=== PATIENT | male | born 1950 | race Caucasian/White ===

== ENCOUNTER 2022-08-04 13:12 | Inpatient (IN) ==
[2022-08-04] MEDS ORDERED: Ondansetron 4 MG/2 ML VIAL IVP ONE (13:28)
[2022-08-04] MEDS ORDERED: Morphine Sulfate 2 MG/ML SYRINGE IVP ONE (13:28)
[2022-08-04] MEDS ORDERED: *HR* HYDROmorphone (PF) 1 MG/ML SYRINGE IVP ONE ×2 (14:33→20:18)
[2022-08-04] MEDS ORDERED: Naloxone 0.4 MG/ML INJ IVP PRN (15:01)
[2022-08-04 15:24] LABS: Basophils % 0.4 %; Eosinophils # 0.1 K/mcL (0.0-0.6); Eosinophils % 0.8 %; Hematocrit 40.7 % (37.5-50.1); Hemoglobin 13.8 g/dL (12.9-16.9); Immature Granulocytes % 0.4 % (0-4); Lymphocytes # 0.8 K/mcL (0.6-4.6); Lymphocytes % 7.3 %; Mean Corpuscular HGB Conc 33.9 g/dL (31.6-35.5); Mean Corpuscular Hemoglobin 29.4 pg (28.0-33.3); Mean Corpuscular Volume 86.8 fL (83.0-100.0); Mean Platelet Volume 8.7 fL (9.4-12.4); Monocytes # 0.5 K/mcL (0.0-1.3); Monocytes % 4.5 %; Neutrophils # 9.2 K/mcL (1.6-8.9); Platelet Count 282 K/mcL (140-400); Red Blood Count 4.69 M/mcL (4.19-5.50); Red Cell Distribution Width 13.4 % (11.5-14.5); Segmented Neutrophils % 86.6 %; White Blood Count 10.7 K/mcL (4.3-11.1)
[2022-08-04 15:26] LABS: BUN/Creatinine Ratio 29 (6-26); Blood Urea Nitrogen 16 mg/dL (8-23); Calcium 9.8 mg/dL (8.6-10.3); Carbon Dioxide 26 mEq/L (23-29); Chloride 104 mEq/L (98-107); Glucose 112 mg/dL (70-105); Osmolality,Calculated 284 (280-300); Potassium 3.9 mEq/L (3.5-5.1); Sodium 136 mEq/L (136-145)
[2022-08-04 15:30] LABS: Prothrombin Time 11.6 Seconds (9.4-12.1)
[2022-08-04 15:33] LABS: Activated Partial Thrombo Time 29.6 Seconds (26.0-36.0)
[2022-08-04] MEDS ORDERED: *HR* OxyCODONE/APAP 7.5/325 TABLET PO PRN (16:42)
[2022-08-04] MEDS: *HR* Heparin 5,000 UNIT/ML VIAL SQ SCH (18:32)
[2022-08-04] MEDS ORDERED: D5% in Water 1,000 ML IVC PRN (20:21)
[2022-08-04] MEDS ORDERED: *HR* Dextrose 50 % in Water (Syg) 50 ML SYRINGE IVP PRN (20:21)
[2022-08-04] MEDS ORDERED: Dextrose Gel 15 GM/37.5 ML TUBE PO PRN ×2 (20:21)
[2022-08-04] MEDS: Aspirin Enteric Coated 81 MG Tablet PO SCH ×2 (21:09→21:10)
[2022-08-05] MEDS: *HR* OxyCODONE Immed Rel 5 MG TABLET PO PRN ×3 (02:13→19:03)
[2022-08-05 04:44] LABS: Basophils % 0.3 %; Eosinophils # 0.6 K/mcL (0.0-0.6); Eosinophils % 6.5 %; Hematocrit 40.5 % (37.5-50.1); Hemoglobin 13.6 g/dL (12.9-16.9); Immature Granulocytes % 0.1 % (0-4); Lymphocytes # 1.6 K/mcL (0.6-4.6); Lymphocytes % 18.3 %; Mean Corpuscular HGB Conc 33.6 g/dL (31.6-35.5); Mean Corpuscular Hemoglobin 29.6 pg (28.0-33.3); Mean Corpuscular Volume 88.2 fL (83.0-100.0); Mean Platelet Volume 8.9 fL (9.4-12.4); Monocytes # 0.7 K/mcL (0.0-1.3); Monocytes % 8.3 %; Neutrophils # 5.9 K/mcL (1.6-8.9); Platelet Count 302 K/mcL (140-400); Red Blood Count 4.59 M/mcL (4.19-5.50); Red Cell Distribution Width 13.5 % (11.5-14.5); Segmented Neutrophils % 66.5 %; White Blood Count 8.8 K/mcL (4.3-11.1)
[2022-08-05 05:01] LABS: BUN/Creatinine Ratio 24 (6-26); Blood Urea Nitrogen 15 mg/dL (8-23); Calcium 9.6 mg/dL (8.6-10.3); Carbon Dioxide 28 mEq/L (23-29); Chloride 100 mEq/L (98-107); Glucose 109 mg/dL (70-105); Osmolality,Calculated 283 (280-300); Potassium 3.7 mEq/L (3.5-5.1); Sodium 136 mEq/L (136-145)
[2022-08-05] MEDS ORDERED: *HR* HYDROmorphone (PF) 1 MG/ML SYRINGE IVP ONE (05:04)
[2022-08-05] MEDS: Levothyroxine 25 MCG TABLET PO SCH (05:09)
[2022-08-05] MEDS: *HR* Heparin 5,000 UNIT/ML VIAL SQ SCH ×2 (05:09→18:59)
[2022-08-05] MEDS: Metoprolol XL (24 HR) Succ 25 MG TAB.ER.24H PO SCH (07:33)
[2022-08-05] MEDS ORDERED: *HR* Rocuronium Bromide 50 MG/5 ML VIAL ONE (07:35)
[2022-08-05] MEDS ORDERED: Lidocaine HCL 4 ML Topical Solution (Laryng-O-Jet Kit Sterile Pak) TP ONE (07:35)
[2022-08-05] MEDS ORDERED: Lidocaine -MPF 2% 5 ML VIAL ONE (07:35)
[2022-08-05] MEDS ORDERED: Ondansetron 4 MG/2 ML VIAL ONE (07:35)
[2022-08-05] MEDS ORDERED: *HR* FentaNYL (PF) 100 MCG/2 ML VIAL ONE (07:36)
[2022-08-05] MEDS ORDERED: *HR* Propofol 200 MG/20 ML VIAL IVP ONE (07:37)
[2022-08-05] MEDS ORDERED: CeFAZolin Syr 2,000MG/20 ML 2,000 MG/20 ML SYRINGE IVPB ONE (07:42)
[2022-08-05] MEDS: Ringers Solution, Lactated 1,000 ML IVC SCH (07:45)
[2022-08-05] MEDS ORDERED: *HR* FentaNYL (PF) 100 MCG/2 ML VIAL IVP PRN (07:58)
[2022-08-05] MEDS ORDERED: *HR* Vasopressin 20 UNIT/ML VIAL ONE (08:17)
[2022-08-05] MEDS ORDERED: Albumin Human 5% 12.5 GM/250 ML IV.SOLN ONE (08:25)
[2022-08-05] MEDS ORDERED: *HR* Phenylephrine 10 MG/ML VIAL ONE (08:38)
[2022-08-05] MEDS ORDERED: Sugammadex Sodium 200 MG/2 ML VIAL IV ONE (08:51)
[2022-08-05] MEDS ORDERED: Acetaminophen IV 1,000 MG/100 ML BAG IVPB ONE (08:52)
[2022-08-05] MEDS ORDERED: *HR* Metoprolol 5 MG/5 ML VIAL IVP PRN (10:15)
[2022-08-05] MEDS ORDERED: Nitroglycerin 0.4 MG TAB.SUBL SL PRN (15:50)
[2022-08-05] MEDS: CeFAZolin 2 GM/120 ML BAG IVPB SCH (16:24)
[2022-08-05] MEDS: *HR* OxyCODONE/APAP 5/325 TABLET PO PRN (21:29)
[2022-08-05] MEDS ORDERED: traZODone 50 MG TABLET PO ONE (21:50)
[2022-08-06] MEDS: CeFAZolin 2 GM/120 ML BAG IVPB SCH (00:18)
[2022-08-06] MEDS: *HR* OxyCODONE Immed Rel 5 MG TABLET PO PRN ×4 (00:18→21:29)
[2022-08-06] MEDS: *HR* OxyCODONE/APAP 5/325 TABLET PO PRN ×3 (03:57→23:05)
[2022-08-06 04:29] LABS: Hematocrit 29.4 % (37.5-50.1)
[2022-08-06 04:32] LABS: Hemoglobin 9.9 g/dL (12.9-16.9)
[2022-08-06] MEDS: Levothyroxine 25 MCG TABLET PO SCH (06:14)
[2022-08-06] MEDS: *HR* Heparin 5,000 UNIT/ML VIAL SQ SCH ×3 (06:15→23:05)
[2022-08-06] MEDS: Metoprolol XL (24 HR) Succ 25 MG TAB.ER.24H PO SCH (08:11)
[2022-08-06] MEDS: Ringers Solution, Lactated 1,000 ML IVC SCH (15:41)
[2022-08-06] MEDS: Aspirin Enteric Coated 81 MG Tablet PO SCH (21:29)
[2022-08-07] MEDS: *HR* OxyCODONE/APAP 5/325 TABLET PO PRN (03:48)
[2022-08-07] MEDS: *HR* OxyCODONE Immed Rel 5 MG TABLET PO PRN ×3 (05:52→19:57)
[2022-08-07] MEDS: Levothyroxine 25 MCG TABLET PO SCH (05:52)
[2022-08-07] MEDS: *HR* Heparin 5,000 UNIT/ML VIAL SQ SCH ×2 (08:18→16:32)
[2022-08-07] MEDS: Metoprolol XL (24 HR) Succ 25 MG TAB.ER.24H PO SCH (08:18)
[2022-08-07 14:16] LABS: Basophils % 0.3 %; Eosinophils # 0.4 K/mcL (0.0-0.6); Eosinophils % 5.6 %; Hematocrit 27.2 % (37.5-50.1); Immature Granulocytes % 0.5 % (0-4); Lymphocytes % 16.2 %; Mean Corpuscular HGB Conc 33.1 g/dL (31.6-35.5); Mean Corpuscular Hemoglobin 29.9 pg (28.0-33.3); Mean Corpuscular Volume 90.4 fL (83.0-100.0); Mean Platelet Volume 8.9 fL (9.4-12.4); Monocytes # 0.5 K/mcL (0.0-1.3); Monocytes % 8.6 %; Neutrophils # 4.3 K/mcL (1.6-8.9); Platelet Count 269 K/mcL (140-400); Red Blood Count 3.01 M/mcL (4.19-5.50); Red Cell Distribution Width 13.7 % (11.5-14.5); Segmented Neutrophils % 68.8 %; White Blood Count 6.3 K/mcL (4.3-11.1)
[2022-08-07 14:37] LABS: BUN/Creatinine Ratio 18 (6-26); Blood Urea Nitrogen 11 mg/dL (8-23); Calcium 8.8 mg/dL (8.6-10.3); Carbon Dioxide 28 mEq/L (23-29); Chloride 99 mEq/L (98-107); Glucose 108 mg/dL (70-105); Osmolality,Calculated 278 (280-300); Potassium 3.6 mEq/L (3.5-5.1); Sodium 134 mEq/L (136-145)
[2022-08-08] MEDS: *HR* Heparin 5,000 UNIT/ML VIAL SQ SCH ×3 (02:58→15:38)
[2022-08-08] MEDS: Levothyroxine 25 MCG TABLET PO SCH (06:14)
[2022-08-08 07:01] LABS: Basophils % 0.3 %; Eosinophils # 0.4 K/mcL (0.0-0.6); Eosinophils % 6.8 %; Hematocrit 26.1 % (37.5-50.1); Hemoglobin 8.7 g/dL (12.9-16.9); Immature Granulocytes % 0.5 % (0-4); Lymphocytes # 1.1 K/mcL (0.6-4.6); Lymphocytes % 19.2 %; Mean Corpuscular HGB Conc 33.3 g/dL (31.6-35.5); Mean Corpuscular Hemoglobin 29.8 pg (28.0-33.3); Mean Corpuscular Volume 89.4 fL (83.0-100.0); Mean Platelet Volume 9.3 fL (9.4-12.4); Monocytes # 0.5 K/mcL (0.0-1.3); Monocytes % 8.7 %; Neutrophils # 3.7 K/mcL (1.6-8.9); Platelet Count 271 K/mcL (140-400); Red Blood Count 2.92 M/mcL (4.19-5.50); Red Cell Distribution Width 13.8 % (11.5-14.5); Segmented Neutrophils % 64.5 %; White Blood Count 5.7 K/mcL (4.3-11.1)
[2022-08-08] MEDS: Metoprolol XL (24 HR) Succ 25 MG TAB.ER.24H PO SCH (08:01)
[2022-08-08] MEDS: *HR* OxyCODONE/APAP 5/325 TABLET PO PRN ×2 (16:41→20:58)
[2022-08-08] MEDS: Aspirin Enteric Coated 81 MG Tablet PO SCH (20:58)
[2022-08-09] MEDS: Levothyroxine 25 MCG TABLET PO SCH (04:39)
[2022-08-09] MEDS: *HR* OxyCODONE/APAP 5/325 TABLET PO PRN ×2 (04:39→15:20)
[2022-08-09] MEDS: *HR* Heparin 5,000 UNIT/ML VIAL SQ SCH ×3 (05:48→16:17)
[2022-08-09 06:57] LABS: Hemoglobin 8.8 g/dL (12.9-16.9); Mean Corpuscular HGB Conc 33.8 g/dL (31.6-35.5); Mean Corpuscular Hemoglobin 29.6 pg (28.0-33.3); Mean Corpuscular Volume 87.5 fL (83.0-100.0); Mean Platelet Volume 8.8 fL (9.4-12.4); Platelet Count 310 K/mcL (140-400); Red Blood Count 2.97 M/mcL (4.19-5.50); Red Cell Distribution Width 13.8 % (11.5-14.5); White Blood Count 5.2 K/mcL (4.3-11.1)
[2022-08-09 07:19] LABS: BUN/Creatinine Ratio 27 (6-26); Blood Urea Nitrogen 16 mg/dL (8-23); Calcium 8.6 mg/dL (8.6-10.3); Carbon Dioxide 29 mEq/L (23-29); Chloride 100 mEq/L (98-107); Glucose 103 mg/dL (70-105); Osmolality,Calculated 281 (280-300); Potassium 3.7 mEq/L (3.5-5.1); Sodium 135 mEq/L (136-145)
[2022-08-09] MEDS: Metoprolol XL (24 HR) Succ 25 MG TAB.ER.24H PO SCH (08:28)
[2022-08-10] MEDS: *HR* OxyCODONE/APAP 5/325 TABLET PO PRN ×2 (00:12→06:14)
[2022-08-10] MEDS: *HR* Heparin 5,000 UNIT/ML VIAL SQ SCH (00:12)
[2022-08-10] MEDS: Levothyroxine 25 MCG TABLET PO SCH (06:14)
[2022-08-10] MEDS: Metoprolol XL (24 HR) Succ 25 MG TAB.ER.24H PO SCH (09:03)
[2022-08-10] MEDS: *HR* OxyCODONE Immed Rel 5 MG TABLET PO PRN ×2 (17:43→23:24)
[2022-08-10] MEDS: Aspirin Enteric Coated 81 MG Tablet PO SCH (22:03)
[2022-08-11] MEDS: Levothyroxine 25 MCG TABLET PO SCH (05:37)
[2022-08-11] MEDS: *HR* OxyCODONE/APAP 5/325 TABLET PO PRN ×2 (05:37→13:21)
[2022-08-11 07:37] VITALS: BP 124/75; PULSE 86; TEMP 98; O2SAT 93
[2022-08-11] MEDS: Metoprolol XL (24 HR) Succ 25 MG TAB.ER.24H PO SCH (08:52)
[2022-08-11 17:53] LABS: Influenza A PCR Negative (Negative); Influenza B PCR Negative (Negative); Resp. Syncytial Virus PCR Negative (Negative)
[2022-08-11 18:00] LABS: SARS-CoV-2 by PCR (In House) Negative (Negative)
[2022-08-11] MEDS: *HR* OxyCODONE Immed Rel 5 MG TABLET PO PRN (19:31)
== END 2022-08-11 19:30 | DRG 481 ==
LOC: 4WAOSI 13:12 → EMEROOARM 13:12 → SUATTDRO 15:04 → 4WAOSI 15:40
PROVIDERS: ADMIT Internal Medicine; ATTEND Student in an Organized Health Care Education/Training Program